=== PATIENT | female | born 1960 ===

== ENCOUNTER 2018-03-20 10:03 | Day surgery (SDC) | payer MEDICARE ==
[2018-03-20 10:47] VITALS: BMI 29.2
[2018-03-20] MEDS ORDERED: Lidocaine Hydrochloride 5 ML INJ ONE (13:07)
[2018-03-20] MEDS ORDERED: Propofol 10 mg/ml Inj (20 ML) ONE (13:07)
[2018-03-20 14:04] VITALS: O2SAT 100
[2018-03-20 14:26] VITALS: RESP 17
[2018-03-20 14:43] VITALS: BP 131/79; PULSE 75; TEMP 97.3
== END 2018-03-20 14:37 | disposition home or self-care (01) ==
LOC: C.ENDO 10:03
PROVIDERS: ATTEND Internal Medicine Gastroenterology
DX: K20.9 Esophagitis, unspecified (principal); K29.70 Gastritis, unspecified, without bleeding; K57.90 Diverticulosis of intestine, part unspecified, without perforation or abscess without bleeding; K64.8 Other hemorrhoids
CPT/HCPCS: 43239; 45378; 82948; 88305; 88312; 88342; J2704; J3010